=== PATIENT | male | born 1950 | race Caucasian/White ===

== ENCOUNTER 2018-08-18 14:39 | Emergency (ER) | payer MEDICARE ==
[2018-08-18 15:09] VITALS: RESP 20; TEMP 98.4
[2018-08-18] MEDS ORDERED: ceFAZolin 1,000 MG VIAL IM STA (15:34)
[2018-08-18] MEDS ORDERED: DIPH,PERTUS(ACELL)TETVAC-LF 0.5 ML VIAL IM ONE (15:34)
[2018-08-18] MEDS ORDERED: GELATIN SPONGE,ABSORB (LARGE) 1 EACH SPONGE TOPICAL STA (16:04)
[2018-08-18] MEDS ORDERED: LIDOCAINE 1% INJ 10MG/ML (20 ML MDV) SQ STA (16:04)
--- NOTE | 2018-08-18 16:27 | XR ---
EXAMINATION TYPE: XR hand complete RT DATE OF EXAM: 08/18/2018 COMPARISON: NONE HISTORY: Laceration. Cut with a granular TECHNIQUE: 3 views FINDINGS: There is amputation deformity of the soft tissues at the end of the right thumb. There are small densities in the soft tissues consistent with tiny foreign bodies at the end of the thumb. Ther e is probably amputation of part of the tuft of the distal phalanx of the right thumb. 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 There is osteoarthritic changes also in the P IP joints of the fingers. IMPRESSION: Amputation deformity with tiny foreign bodies.
--- NOTE | 2018-08-18 16:38 | ED ---
General Adult HPI - General Chief complaint: Wound/Laceration Stated complaint: Cut tip of thumb off Time Seen by Provider: 08/18/18 15:20 Source: patient, RN notes reviewed Mode of arrival: ambulatory Limitations: no limitations - History of Present Illness Initial comments: Patient is a 68-year-old male presenting to the emergency room today with a chief complaint of an injury to the right thumb that occurred just prior to arrival. He does admit that he was using a grinding wheel when it slipped causing laceration amputation of the distal tip of his right thumb. Patient states unsure of his tetanus status. Patient admits to pain locally. He denies any other complaints or symptoms. Patient denies any recent fever, chills , shortness of breath, chest pain, back pain, abdominal pain, nausea or vomiting , numbness or tingling, headaches or visual changes, or any other complaints. - Related Data Home Medications Medication Instructions Recorded Confirmed Rosuvastatin Calcium [Crestor] 10 mg PO DAILY 08/18/18 08/18/18 Previous Rx's Medication Instructions Recorded Cephalexin [Keflex] 500 mg PO Q12HR 10 Days cap 08/18/18 Ibuprofen [Motrin] 600 mg PO Q6HR PRN #30 day 08/18/18 Allergies Allergy/AdvReac Type Severity Reaction Status Date / Time No Known Allergies Allergy Verified 08/18/18 15:23 Review of Systems ROS Statement: Those systems with pertinent positive or pertinent negative responses have been documented in the HPI. ROS Other: All systems not noted in ROS Statement are negative. Past Medical History Past Medical History: Hyperlipidemia History of Any Multi-Drug Resistant Organisms: None Reported Past Surgical History: No Surgical Hx Reported Past Psychological History: No Psychological Hx Reported Smoking Status: Never smoker Past Alcohol Use History: None Reported Past Drug Use History: None Reported General Exam - General Exam Comments Initial Comments: General: The patient is awake and alert, in no distress, and does not appear acutely ill. Neck: The neck is supple, there is no tenderness or JVD. Musculoskeletal: Patient does have distal tip amputation of the right thumb below the DIP. Sensations are intact. Radial pulses 2+. There is no active bleeding. Patient shows full range of motion. Neurological: A&O x 3. CN II-XII intact, There are no obvious motor or sensory deficits. Coordination appears grossly intact. Speech is normal. Skin: Skin is warm and dry and no rashes or lesions are noted. Psychiatric: Normal mood and affect. Limitations: no limitations Course Vital Signs 08/18/18 15:03 Temperature 98.4 F Pulse Rate 97 Respiratory 20 Rate Blood Pressure 166/76 O2 Sat by Pulse 100 Oximetry Procedures - Procedures Initial comment: Patient's right thumb was anesthetized at the head of the metacarpal with 1% lidocaine. It was irrigated with saline approximately 1 L under pressure. Gelfoam was placed over top. Sterile nonstick dressing placed over top of this. Patient tolerated well. Medical Decision Making - Medical Decision Making X-ray reviewed and does show a distal tip fracture and amputation of the right thumb. Patient's tetanus is been updated. Given dose of Ancef. Patient did have the thumb irrigated and sterile nonstick dressing was placed over top. Patient is advised on up with orthopedics tomorrow. Advised return if symptoms increase or worsen. Will be continued on antibiotics. Disposition Clinical Impression: Fingertip amputation Disposition: HOME SELF-CARE Condition: Good Instructions: Finger Amputation (ED) Additional Instructions: Please leave dressing in place and follow-up with orthopedics tomorrow. Please use antibiotic as prescribed. Please return here to the emergency room symptoms increase or worsen or for any other concerns. Prescriptions: Cephalexin [Keflex] 500 mg PO Q12HR 10 Days cap Ibuprofen [Motrin] 600 mg PO Q6HR PRN #30 day PRN Reason: Pain Is patient prescribed a controlled substance at d/c from ED?: No Referrals: Nonstaff,Physician [REFERRING] - 1-2 days Nacho Billy MD [STAFF PHYSICIAN] - 1-2 days Time of Disposition: 16:39
[2018-08-18 17:02] VITALS: BP 142/70; PULSE 89
== END 2018-08-18 17:02 | disposition home or self-care (01) ==
LOC: EC 14:39
DX: S68.011A Complete traumatic metacarpophalangeal amputation of right thumb, initial encounter (principal); E78.5 Hyperlipidemia, unspecified; Z23 Encounter for immunization; Z79.899 Other long term (current) drug therapy; W27.8XXA Contact with other nonpowered hand tool, initial encounter
CPT/HCPCS: 73130; 90715; 99283; 96372; 90471; J0690; J2001

== ENCOUNTER → 2018-08-20 | Day surgery (SDC) | payer MEDICARE ==
--- NOTE | 2018-08-19 13:03 | HP ---
HISTORY AND PHYSICAL CHIEF COMPLAINT: Right thumb pain. 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 He was using a knife grinder at home when he got his thumb caught in it. He sustained a traumatic partial amputation. He was seen in the emergency room and had his wound irrigated. He was started on oral Keflex. He notes his tetanus is up to date. He denies previous injury. PAST MEDICAL HISTORY: Past medical history is significant for hypercholesterolemia. PAST SURGICAL HISTORY: Past surgical history is negative. CURRENT MEDICATIONS: Crestor and Keflex. ALLERGIES: He denies drug allergies. FAMILY HISTORY: Significant for cancer. SOCIAL HISTORY: Negative for current tobacco or alcohol use. REVIEW OF SYSTEMS: Sixteen-point review of systems otherwise reviewed and is noncontributory. PHYSICAL EXAMINATION: On examination, the patient is approximately 5 feet 8 inches, 190 pounds of mesomorphic habitus. HEENT exam is nonfocal. Neck is supple. He is nontender about the right shoulder, elbow and wrist. On examination of his right hand, he does have a partial amputation of the tip of the right thumb at the mid nail level. The nail plate has been removed. He does have some exposed distal phalanx. He has mild limitation of range of motion; however, he does fire the [employer] and [employer]. Capillary refill is less than 2 seconds in the distal tip. X-rays of the right hand from 08/18/2018 shows amputation of the distal tip of the distal phalanx along with a distal soft tissue defect. IMPRESSION: Right thumb distal tip partial amputation. RECOMMENDATIONS: I talked to the patient regarding his condition and treatment options. At this point, we will plan to proceed with amputation revision with likely shortening of the distal phalanx and coverage of the distal tip. We will likely perform that as an outpatient procedure utilizing local anesthetic and IV sedation. We will have him continue with his current oral Keflex. MMODL / IJN: [id number] /
[2018-08-19 13:21] VITALS: BMI 28.8
[~2018-08-20] MED LIST: BUPIVACAINE (PF) 0.25% 30 ML VIAL MISCELLANE ONE; DEXAMETHASONE SOD PHOSPHATE 10 MG/ML 1 ML VIAL IV ONE; HYDROcodone/APAP 5-325MG 1 EACH TAB PO ONE; KETAMINE 10 MG/ML 20 ML VIAL ONE; LIDOCAINE 1% 20 ML VIAL (10MG/ML) FOR IV START INTRADERMA PRN; LIDOCAINE 1% INJ 10MG/ML (20 ML MDV) ONE; MIDAZOLAM 2 MG/2 ML VIAL ONE; ONDANSETRON 4 MG/2 ML VIAL IVP ONE; PROPOFOL 10 MG/ML 20 ML VIAL IV ONE; ceFAZolin IN SWFI 2 GM/20 ML SYRINGE IVP ONE; fentaNYL (PF) 50 MCG/ML 2 ML AMP IV PRN; fentaNYL (PF) 50 MCG/ML 2 ML AMP ONE
[2018-08-20 12:08] VITALS: RESP 16; TEMP 98.1
[2018-08-20] MEDS: LACTATED RINGERS 1,000 ML IV SCH ×2 (12:37→12:39)
--- NOTE | 2018-08-20 13:35 | P.OP ---
Date of Procedure: 08/20/18 Preoperative Diagnosis: Traumatic partial amputation right thumb distal tip Postoperative Diagnosis: Same Procedure(s) Performed: Irrigation and debridement right thumb distal tip with revision amputation/ closure Right thumb digital block utilizing 10 mL of quarter percent plain Marcaine Anesthesia: MAC, local Surgeon: Nacho Billy Estimated Blood Loss (ml): 4 Pathology: none sent Condition: stable Disposition: PACU Indications for Procedure: The patient's a 68-year-old [id number] male who presents after injuring his right thumb on a sugar grinder. Upon evaluation he was noted have a partial amputation of the right thumb distal tip with soft tissue loss along with exposed bone. A discussion of the risks and benefits of operative intervention was made with the patient. He opted to proceed. Operative risks to include infection, wound healing problems, and possible need for subsequent procedures was discussed. Operative Findings: As below Description of Procedure: The patient was brought to the operating room, and after induction of IV sedation a digital block was placed by myself utilizing 10 mL of quarter percent plain Marcaine. The right upper extremity was then prepped and draped in a normal fashion. A Velasquez drain was used as a tourniquet. The distal tip was then explored. The distal phalanx was exposed with loss of proximal 75% of the sterile matrix. Volar tissue was also deficient. This was copiously irrigated with normal saline. The distal phalanx was exposed and approximately 5 mm was resected utilizing a sagittal saw. The volar soft tissues appeared contaminated with metallic debris and this was debrided sharply with a scalpel. The soft tissue was then closed over this distal tip of the distal phalanx utilizing simple 4-0 Vicryl suture. I felt there was adequate distal soft tissue coverage. The [place] was removed with approximately 20 minutes total tourniquet time. A sterile dressing was applied. Patient was awoken from sedation and transferred to the recovery room in good condition. Blood loss was estimated at 4 mL. No complications were incurred. Sponge and needle counts were correct at the end of the case.
[2018-08-20 14:29] VITALS: BP 147/83; PULSE 69
== END | disposition home or self-care (01) ==
LOC: OR 11:49
PROVIDERS: ATTEND Orthopaedic Surgery
DX: S68.021A Partial traumatic metacarpophalangeal amputation of right thumb, initial encounter (principal); W31.89XA Contact with other specified machinery, initial encounter; Y92.009 Unspecified place in unspecified non-institutional (private) residence as the place of occurrence of the external cause; E78.00 Pure hypercholesterolemia, unspecified; E78.5 Hyperlipidemia, unspecified; Z79.899 Other long term (current) drug therapy; Z79.1 Long term (current) use of non-steroidal anti-inflammatories (NSAID)
CPT/HCPCS: 26236; J2250; J1100; J2405; J2001; J3010; J2704

== ENCOUNTER 2023-09-24 11:55 | Inpatient (IN) | payer MEDICARE ==
[2023-09-24 12:19] LABS: Basophils # (A) 0.1 k/uL (0-0.2); Basophils % (A) 1 %; Eosinophils # (A) 0.4 k/uL (0-0.7); Eosinophils % (A) 3 %; HGB 16.7 gm/dL (13.0-17.5); Lymphocytes # (A) 2.2 k/uL (1.0-4.8); Lymphocytes % (A) 20 %; MCH 28.9 pg (25.0-35.0); MCHC 33.5 g/dL (31.0-37.0); MCV 86.3 fL (80.0-100.0); Mean Platelet Volume 8.1; Monocytes # (A) 0.5 k/uL (0-1.0); Monocytes % (A) 5 %; Neutrophils # (A) 7.5 k/uL (1.3-7.7); Neutrophils % (A) 69 %; Platelet Count 308 k/uL (150-450); RBC 5.79 m/uL (4.30-5.90); RDW 13.1 % (11.5-15.5); WBC 10.8 k/uL (3.8-10.6)
[2023-09-24] MEDS: METOPROLOL TARTRATE 5 MG/5 ML VIAL IVP STA (12:23)
[2023-09-24] MEDS: DILTIAZEM DRIP BOLUS FROM BAG 1 MG SOLN IV ONE ×2 (12:25→16:49)
[2023-09-24] MEDS: DILTIAZEM 125 MG in SODIUM CHLORIDE 0.9% 100 ML IV SCH (12:26)
[2023-09-24 12:27] LABS: ALT 33 U/L (4-49); AST 29 U/L (17-59); African American GFR (CKD) 82 (>60 ml/min/1.73 sqM); Albumin 4.6 g/dL (3.5-5.0); Alkaline Phosphatase 74 U/L (38-126); Anion Gap 10 mmol/L; Blood Urea Nitrogen 19 mg/dL (9-20); Calcium 9.9 mg/dL (8.4-10.2); Carbon Dioxide 23 mmol/L (22-30); Chloride 103 mmol/L (98-107); Glucose 183 mg/dL (74-99); Magnesium 1.8 mg/dL (1.6-2.3); Non-African American GFR(CKD) 71 (>60 ml/min/1.73 sqM); Potassium 4.8 mmol/L (3.5-5.1); Sodium 136 mmol/L (137-145); Total Bilirubin 0.7 mg/dL (0.2-1.3); Total Protein 7.7 g/dL (6.3-8.2)
[2023-09-24 12:28] LABS: INR 0.9 (<1.2); Partial Thromboplastin Time 22.1 sec (22.0-30.0); Prothrombin Time 10.5 sec (10.0-12.5)
--- NOTE | 2023-09-24 13:00 | XR ---
EXAMINATION TYPE: XR chest 2V DATE OF EXAM: 09/24/2023 COMPARISON: NONE TECHNIQUE: PA and lateral views submitted. HISTORY: Chest pain FINDINGS: The lungs are clear and there is no pneumothorax, pleural effusion, or focal pneumonia. Heart size normal and no overt failure. Osseous structures demonstrate hypertrophic and degenerative changes of the spine. Arthropathy of the left AC joint. Diffuse Skeletal hyperostosis in the differential diagnosis. IMPRESSION: 1. No acute process.
--- NOTE | 2023-09-24 13:08 | ED ---
Chest Pain HPI - General Chief Complaint: Chest Pain Stated Complaint: Afib Time Seen by Provider: 09/24/23 12:10 Source: patient, RN notes reviewed, old records reviewed Mode of arrival: EMS Limitations: no limitations - History of Present Illness Initial Comments: This is 71-year-old male to ER for evaluation today. Patient presents for evaluation of chest pain today patient does have some chest pain sweating and shortness of breath that occurred while working out in his garage. Patient was just doing normal activities of daily living will be came inside to try to relax and feel better pain and symptoms did not improve and persisted which presents emergency department still with chest pain and shortness of breath MD Complaint: chest pain -: days(s) Onset: during rest Pain Location: substernal, left chest Pain Radiation: LUE Severity: mild Severity scale (1-10): 3 Quality: heaviness Consistency: constant Improves With: nothing Worsens With: nothing Anginal Symptoms: nausea, sense of impending doom Other Symptoms: palpitations Treatments Prior to Arrival: none - Related Data Previous Rx's Medication Instructions Recorded Apixaban [Eliquis] 5 mg PO BID #60 tab 09/26/23 Aspirin 81 mg PO DAILY #7 tab 09/26/23 Atorvastatin [Lipitor] 80 mg PO HS #90 tab 09/26/23 Clopidogrel [Plavix] 75 mg PO DAILY #90 tab 09/26/23 Losartan [Cozaar] 25 mg PO DAILY #90 tab 09/26/23 Metoprolol Tartrate [Lopressor] 50 mg PO TID #180 tab 09/26/23 Nitroglycerin Sl Tabs [Nitrostat] 0.4 mg SUBLINGUAL Q5M PRN #100 tab 09/26/23 Allergies Allergy/AdvReac Type Severity Reaction Status Date / Time No Known Allergies Allergy Verified 09/24/23 13:38 Review of Systems ROS Statement: Those systems with pertinent positive or pertinent negative responses have been documented in the HPI. ROS Other: All systems not noted in ROS Statement are negative. EKG Findings - EKG Comments: EKG Findings:: EKG is atrial fibrillation with RVR 157 QRS 81 QTc 348 - EKG Results: EKG: interpreted by DAQUAN Past Medical History Past Medical History: Hyperlipidemia Additional Past Medical History / Comment(s): rt thumb injury with external grinder tender 08-18-18 History of Any Multi-Drug Resistant Organisms: None Reported Past Surgical History: No Surgical Hx Reported Additional Past Surgical History / Comment(s): colonoscopy Past Anesthesia/Blood Transfusion Reactions: No Reported Reaction Past Psychological History: No Psychological Hx Reported Past Alcohol Use History: None Reported Past Drug Use History: None Reported - Past Family History Mother Family Medical History: No Reported History Father Family Medical History: Cancer Additional Family Medical History / Comment(s): stomach General Exam Limitations: no limitations General appearance: alert, in no apparent distress, anxious Head exam: Present: atraumatic, normocephalic, normal inspection Eye exam: Present: normal appearance, PERRL, EOMI. Absent: scleral icterus, conjunctival injection, periorbital swelling ENT exam: Present: normal exam, mucous membranes dry, mucous membranes moist Neck exam: Present: normal inspection. Absent: tenderness, meningismus, lymphadenopathy Respiratory exam: Present: normal lung sounds bilaterally. Absent: respiratory distress, wheezes, rales, rhonchi, stridor Cardiovascular Exam: Present: tachycardia, irregular rhythm, normal heart sounds. Absent: systolic murmur, diastolic murmur, rubs, gallop, clicks GI/Abdominal exam: Present: soft, normal bowel sounds. Absent: distended, tenderness, guarding, rebound, rigid Extremities exam: Present: normal inspection, full ROM, normal capillary refill. Absent: tenderness, pedal edema, joint swelling, calf tenderness Back exam: Present: normal inspection Neurological exam: Present: alert, oriented X3, CN II-XII intact Psychiatric exam: Present: normal affect, normal mood Skin exam: Present: warm, dry, intact, normal color. Absent: rash Course Vital Signs 09/24/23 09/24/23 09/24/23 11:58 12:02 12:05 Temperature 98.5 F Pulse Rate 157 H 168 H Pulse Rate [ 130 H Pulse Oximetery ] Respiratory 16 16 Rate Blood Pressure 117/83 Blood Pressure [Right Arm] O2 Sat by Pulse 94 L 100 Oximetry 09/24/23 09/24/23 09/24/23 13:02 14:00 16:00 Temperature 98 F Pulse Rate 98 87 Pulse Rate [ 78 Pulse Oximetery ] Respiratory 18 18 16 Rate Blood Pressure 113/73 111/80 Blood Pressure 112/87 [Right Arm] O2 Sat by Pulse 98 98 97 Oximetry 09/24/23 09/24/2324 16:23 16:50 18:31 Temperature Pulse Rate 98 107 H Pulse Rate [ 86 Pulse Oximetery ] Respiratory 20 18 Rate Blood Pressure 121/82 123/80 Blood Pressure [Right Arm] O2 Sat by Pulse 97 97 Oximetry 09/24/23 18:52 Temperature 98.2 F Pulse Rate Pulse Rate [ 80 Pulse Oximetery ] Respiratory 20 Rate Blood Pressure Blood Pressure 115/68 [Right Arm] O2 Sat by Pulse 95 Oximetry - Reevaluation(s) Reevaluation #1: 09/24/23 14:48 Records reviewed Reevaluation #2: 09/24/23 14:48 Patient symptoms are improved Reevaluation #3: 09/24/23 14:48 Patient is informed of results here in the ER, questions answered still with chest pain Reevaluation #4: 09/24/23 14:48 Was pt. sent in by a medical professional or institution (, PA, [employer], urgent care, hospital, or [place] [facility] facility...) When possible be specific @ -no Did you speak to anyone other than the patient for history (EMS, parent, family, police, friend...)? What history was obtained from this source @ -no Did you review nursing and triage notes (agree or disagree)? Why? @ -agree Are old charts reviewed (outside hosp., previous admission, EMS record, old EKG, old radiological studies, urgent care reports/EKG's, [place] [facility] facility records)? Report findings @ -yes Differential Diagnosis (chest pain, altered mental status, abdominal pain women, abdominal pain men, vaginal bleeding, weakness, fever, dyspnea, syncope, headache, dizziness, GI bleed, back pain, seizure, CVA, palpatations, mental health, musculoskeletal)? @ -prior EKG interpreted by me (3pts min.). @ -yes X-rays interpreted by me (1pt min.). @ -yes negative for acute disease CT interpreted by me (1pt min.). @ -no U/S interpreted by me (1pt. min.). @ -no What testing was considered but not performed or refused? (CT, X-rays, U/S, labs)? Why? @ -none What meds were considered but not given or refused? Why? @ -none Did you discuss the management of the patient with other professionals (professionals i.e. , PA, [employer], lab, RT, psych nurse, social research assistant, food cooking machine operator, teacher, bank compliance officer, dependency case manager)? Give summary @ -no Was smoking cessation discussed for >3mins.? @ -no Was critical care preformed (if so, how long)? @ -yes31 Were there social determinants of health that impacted care today? How? (Homelessness, low income, unemployed, alcoholism, drug addiction, transportation, low edu. Level, literacy, decrease access to med. care, snf, rehab)? @ -none Was there de-escalation of care discussed even if they declined (Discuss DNR or withdrawal of care, Hospice)? DNR status @ -no What co-morbidities impacted this encounter? (DM, HTN, Smoking, COPD, CAD, Cancer, CVA, ARF, Chemo, Hep., AIDS, mental health diagnosis, sleep apnea, morbid obesity)? @ -none Was patient admitted / discharged? Hospital course, mention meds given and route, prescriptions, significant lab abnormalities, going to OR and other pertinent info. @ - 73 male to ER with chest pain and elevated troponin, new onset atrial fibrillation with RVR. Patient placed on anticoagulation will admit for cardiology evaluation Admitted Undiagnosed new problem with uncertain prognosis? @ -no Drug Therapy requiring intensive monitoring for toxicity (Heparin, Nitro, Insulin, Cardizem)? @ -no Were any procedures done? @ -no Diagnosis/symptom? @ -Atrial fibrillation with RVR Acute, or Chronic, or Acute on Chronic? @ -Acute Uncomplicated (without systemic symptoms) or Complicated (systemic symptoms)? @ -Complicated Side effects of treatment? @ -no Exacerbation, Progression, or Severe Exacerbation? @ -exacerbation Poses a threat to life or bodily function? How? (Chest pain, [place], ND, pneumonia, PE, COPD, DKA, ARF, appy, cholecystitis, CVA, Diverticulitis, Homicidal, Suicidal, threat to staff... and all critical care pts) @ -yes significant arrhythmia Reevaluation #5: 09/24/23 14:48 Differential Palpitations Ventricular arrhythmias, atrial arrhythmias, myocardial infarction, anemia, thyrotoxicosis, electrolyte imbalance, hypokalemia, pulmonary embolism, pulmonary disease, drugs, alcohol, anxiety, stress.... This is not meant to be an all-inclusive list. Differential Chest Pain: Stable Angina, Unstable Angina, STEMI, NSTEMI Aortic Dissection, Pneumothorax, Musculoskeletal, Esophageal Spasm GERD, Cholecystitis, Pancreatitis, Zoster, this is not meant to be an all-inclusive list. - Consultations Consultation #1: Dr. Griffin agrees to admit this patient Chest Pain MDM - MDM 73 male to ER with chest pain and elevated troponin, new onset atrial fibrillation with RVR. Patient placed on anticoagulation will admit for cardiology evaluation Critical Care Time Critical Care Time: Yes Total Critical Care Time: 31 Disposition Clinical Impression: Chest pain, Acute non-ST elevation myocardial infarction (NSTEMI), Atrial fibrillation with rapid ventricular response, New onset atrial fibrillation Disposition: ADMITTED IP TO THIS HOSP Is patient prescribed a controlled substance at d/c from ED?: No Time of Disposition: 14:40
[2023-09-24] MEDS ORDERED: NITROGLYCERIN SL TABS 0.4 MG TAB SUBLINGUAL PRN (14:43)
[2023-09-24] MEDS ORDERED: MORPHINE SULFATE 4 MG/ML SYRINGE IV PRN (14:43)
[2023-09-24] MEDS: ASPIRIN 81 MG PO STA (16:10)
[2023-09-24] MEDS: HEPARIN SODIUM 1,000 UN/ML (10ML VL) IV ONE (16:19)
[2023-09-24] MEDS: HEPARIN SOD,PORK IN 0.45% NACL 25,000 UNIT in 0.45% NACL 1 250ML.BAG IV SCH (16:20)
[2023-09-24] MEDS: METOPROLOL TARTRATE 25 MG TAB PO SCH (17:16)
[2023-09-24] MEDS ORDERED: CALCIUM CARBONATE 500 MG CHEWABLE PO PRN (19:25)
[2023-09-24] MEDS ORDERED: ALPRAZolam 0.25 MG TAB PO PRN (19:25)
[2023-09-24] MEDS ORDERED: ACETAMINOPHEN TAB 325 MG TAB PO PRN (19:25)
[2023-09-24] MEDS ORDERED: NALOXONE 0.4 MG/ML 1 ML VIAL IV PRN (19:25)
[2023-09-24] MEDS ORDERED: TEMAZEPAM 15 MG CAP PO PRN (19:25)
[2023-09-24] MEDS ORDERED: LACTULOSE 20 GM/30 ML CUP PO PRN (19:25)
[2023-09-24] MEDS ORDERED: ONDANSETRON 4 MG/2 ML VIAL IVP PRN (19:25)
[2023-09-24] MEDS ORDERED: METOPROLOL TARTRATE 25 MG TAB PO SCH (21:00)
[2023-09-24] MEDS: NITROGLYCERIN OINT 1 INCH/GM PACKET TOPICAL SCH (21:03)
--- NOTE | 2023-09-24 21:44 | P.HPIM ---
History of Present Illness H&P Date: 09/24/23 Chief Complaint: Chest pressure This is a very pleasant 73-year-old patient, with Dr. Ghosh. Patient was in good health. Does not take any medications. Did take statins before but because of muscle aching discontinue the same. Patient is rather active. In fact till few months ago was playing hockey 3 times a week. Yesterday was working in the garage with some machine and suddenly felt chest pressure. Also broke out in a sweat in the forehead. Decided to go inside the house. Started feeling uncomfortable. Decided to come to the hospital. Chest pain last for good 3 to 4 hours. He was given aspirin IV heparin Lopressor Nitropaste in the ER. Cardiology was consulted. Patient's troponins started to go up. Patient is found to be in atrial fibrillation with rapid ventricular rate. On a Cardizem drip also. 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 Does not smoke or drink alcohol. Physical examination: VITAL SIGNS: 98.5, 157, 16, 117 x 83, 94% room air upon presentation GENERAL: BMI 28.1, reclining bed awake not in distress. EYES: Pupils equal. Conjunctiva star l. HEENT: External appearance of nose and ears normal, oral cavity grossly normal. NECK: JVD not raised; masses not palpable. HEART: First and second heart sounds are normal; no edema. LUNGS: Respiratory rate normal; clear to auscultation. ABDOMEN: Soft, nontender, liver spleen not palpable, no masses palpable. PSYCH: Alert and oriented x3; mood and affect star l. MUSCULOSKELETAL:No Clubbing/cyanosis;muscles-grossly intact. OA NEUROLOGICAL: Cranial nerves grossly intact; no facial asymmetry, power and sensation grossly intact. LYMPHATICS: No lymph nodes palpable in the axilla and neck INVESTIGATIONS, reviewed in the clinical context: September 24, 2023: White count 10.8 hemoglobin 16.7 platelets 308 sodium 136 potassium 4.8 creatinine 1.05 Troponin I 0.102, 0.840, 3.0 EKG tracing personally reviewed by me-atrial fibrillation. ST/T wave changes. Chest x-ray film personally reviewed by me-unremarkable Assessment plan: -Acute non-Q wave DE. Third troponin has peaked at 3. Aspirin. Lopressor. IV heparin. Cardiology has been informed. Patient to be made n.p.o. after midnight for probable cardiac catheterization -New onset atrial fibrillation with a rapid ventricular rate IV Cardizem drip. IV heparin. Lopressor -Primary osteoarthritis, minimal symptoms -IV heparin monitoring Follow PTT -IV Cardizem drip monitoring Care was discussed with the patient and at the bedside. Questions answered. Past Medical History Past Medical History: Hyperlipidemia Additional Past Medical History / Comment(s): rt thumb injury with jewel bearing grinder 08-18-18 History of Any Multi-Drug Resistant Organisms: None Reported Past Surgical History: No Surgical Hx Reported Additional Past Surgical History / Comment(s): colonoscopy Past Anesthesia/Blood Transfusion Reactions: No Reported Reaction Smoking Status: Never smoker - Past Family History Mother Family Medical History: No Reported History Father Family Medical History: Cancer Additional Family Medical History / Comment(s): stomach Medications and Allergies Home Medications Medication Instructions Recorded Confirmed Type No Known Home Medications 09/24/23 09/24/23 History Allergies Allergy/AdvReac Type Severity Reaction Status Date / Time No Known Allergies Allergy Verified 09/24/23 13:38 Physical Exam Vitals: Vital Signs Temp Pulse Pulse Resp BP BP Pulse Ox 09/24/23 18:52 98.2 F 80 20 115/68 95 09/24/23 18:31 86 09/24/23 16:50 107 H 18 123/80 97 09/24/23 16:23 98 20 121/82 97 09/24/23 16:00 98 F 78 16 112/87 97 09/24/23 14:00 87 18 111/80 98 09/24/23 13:02 98 18 113/73 98 09/24/23 12:05 130 H 09/24/23 12:02 168 H 16 117/83 100 09/24/23 11:58 98.5 F 157 H 16 94 L Intake and Output 09/24/23 09/24/23 09/24/23 06:59 14:59 22:59 Intake Total 382 Balance 382 Intake: Intake, IV Titration 22 Amount Diltiazem 125 mg In 22 Sodium Chloride 0.9% 100 ml @ 10 MG/HR 10 mls/hr IV .[id number] [facility] Rx#: [id number] Oral 360 Other: Voiding Method Toilet Weight 83.915 kg 83.915 kg Results CBC & Chem 7: 09/24/23 12:04 09/24/23 12:04 Labs: Abnormal Lab Results - Last 24 Hours (Table) 09/24/23 09/24/23 09/24/23 Range/Units 12:04 12:04 12:04 WBC 10.8 H (3.8-10.6) k/uL Sodium 136 L (137-145) mmol/L Glucose 183 H (74-99) mg/dL Troponin I 0.102 H* (0.000-0.034) ng/mL 09/24/23 09/24/23 Range/Units 15:22 19:36 WBC (3.8-10.6) k/uL Sodium (137-145) mmol/L Glucose (74-99) mg/dL Troponin I 0.840 H* 3.000 H* (0.000-0.034) ng/mL Thrombosis Risk Factor Assmnt - Choose All That Apply Any of the Below Risk Factors Present?: No Other Risk Factors: Yes Each Risk Factor Represents 2 Points: Age 61-74 years Other congenital or acquired thrombophilia - If yes, enter type in comment: No Thrombosis Risk Factor Assessment Total Risk Factor Score: 2 Thrombosis Risk Factor Assessment Level: Low Risk
[2023-09-25 05:04] LABS: Mean Platelet Volume 8.7; Platelet Count 267 k/uL (150-450)
[2023-09-25 05:21] LABS: ALT 27 U/L (4-49); AST 46 U/L (17-59); African American GFR (CKD) >90 (>60 ml/min/1.73 sqM); Albumin 3.7 g/dL (3.5-5.0); Alkaline Phosphatase 64 U/L (38-126); Anion Gap 9 mmol/L; Blood Urea Nitrogen 25 mg/dL (9-20); Carbon Dioxide 22 mmol/L (22-30); Chloride 104 mmol/L (98-107); Glucose 167 mg/dL (74-99); Non-African American GFR(CKD) 81 (>60 ml/min/1.73 sqM); Potassium 4.3 mmol/L (3.5-5.1); Sodium 135 mmol/L (137-145); Total Bilirubin 0.6 mg/dL (0.2-1.3); Total Protein 6.3 g/dL (6.3-8.2)
--- NOTE | 2023-09-25 06:55 | CA ---
Transthoracic Echo Report Name: Chase Mcgill Age: 73 Gender: M : 1950 Exam Date: 09/24/2023 15:31 Exam Location: [facility] Ht (in): 68 Wt (lb): 185 Ordering Physician: Dez Huffman DO Attending/Referring Phys: [id number], Armida Vertical Contour Band Saw Operator Francesca Mathis RDCS Procedure CPT: Indications: incTrop Cardiac Hx: Technical Quality: Fair Contrast 1: Total Dose (mL): Contrast 2: Total Dose (mL): MEASUREMENTS (Male / Female) Normal Values 2D ECHO LV Diastolic Diameter PLAX 4.1 cm 4.2 - 5.9 / 3.9 - 5.3 cm LV Systolic Diameter PLAX 3.3 cm IVS Diastolic Thickness 1.3 cm 0.6 - 1.0 / 0.6 - 0.9 cm LVPW Diastolic Thickness 1.2 cm 0.6 - 1.0 / 0.6 - 0.9 cm LV Relative Wall Thickness 0.6 RV Internal Dim ED PLAX 2.5 cm LA Systolic Diameter LX 3.9 cm 3.0 - 4.0 / 2.7 - 3.8 cm LV Diastolic Volume MOD 4C 106.3 cm??? LV Systolic Volume MOD 4C 56.5 cm??? LV Ejection Fraction MOD 4C 46.9 % LV Cardiac Index MOD 4C 2212.9 cm???/min???m??? LV Diastolic Length 4C 7.6 cm LV Systolic Length 4C 6.5 cm LV Diastolic Volume MOD 2C 79.8 cm??? LV Systolic Volume MOD 2C 40.6 cm??? LV Ejection Fraction MOD 2C 49.1 % LV Cardiac Index MOD 2C 1741.8 cm???/min???m??? LV Diastolic Length 2C 7.5 cm LV Systolic Length 2C 6.3 cm LA Volume 54.6 cm??? 18 - 58 / 22 - 52 cm??? LA Volume Index 27.0 cm???/m??? 16 - 28 cm???/m??? M-MODE Aortic Root Diameter MM 4.0 cm MV E Point Septal Separation 0.7 cm AV Cusp Separation MM 2.3 cm DOPPLER AV Peak Velocity 117.0 cm/s AV Peak Gradient 5.5 mmHg AI Peak Velocity 426.5 cm/s AI Peak Gradient 72.8 mmHg AI Pressure Half Time 499.2 ms MV Area PHT 4.6 cm??? MV Deceleration Time 138.5 ms TR Peak Velocity 239.1 cm/s TR Peak Gradient 22.9 mmHg Right Ventricular Systolic Press 27.2 mmHg FINDINGS Left Ventricle Left ventricular ejection fraction is estimated at 50-55 %. Left ventricular cavity size normal. Mildly increased left ventricular wall thickness. Right Ventricle Normal right ventricular size. Right ventricular systolic pressure within normal limits. Right Atrium Normal right atrial size. Left Atrium Normal left atrial size. Mitral Valve Mitral valve thickened. Moderate mitral annular calcification. Mild mitral regurgitation. Aortic Valve Trileaflet aortic valve. [id number] aortic regurgitation.aortic valve sclerosis. Tricuspid Valve Structurally normal tricuspid valve. Mild tricuspid regurgitation. Pulmonic Valve Structurally normal pulmonic valve. Mild pulmonic regurgitation. Pericardium No pericardial effusion. Aorta Mild aortic dilatation at the level of the sinuses of valsalva 40 mm CONCLUSIONS 1. Left ventricular systolic function borderline normal 2. Mild mitral and tricuspid regurgitation 3. [id number] aortic regurgitation Previewed by: Dr. Moises Fallon MD (Electronically Signed) Final Date: 25 September 2023 06:54
[2023-09-25] MEDS ORDERED: ALPRAZolam 0.5 MG TAB PO PRN (08:23)
[2023-09-25] MEDS ORDERED: NITROGLYCERIN SL TABS 0.4 MG TAB SUBLINGUAL PRN (08:23)
[2023-09-25] MEDS ORDERED: ALPRAZolam 0.25 MG TAB PO PRN (08:23)
[2023-09-25] MEDS: ASPIRIN 325 MG TAB PO STA (08:33)
[2023-09-25] MEDS: METOPROLOL TARTRATE 50 MG TAB PO SCH (08:33)
[2023-09-25] MEDS: ATORVASTATIN 80 MG TAB PO STA (08:33)
[2023-09-25] MEDS: ASPIRIN 81 MG PO SCH (08:34)
[2023-09-25] MEDS: SODIUM CHLORIDE 0.9% 1,000 ML in EMPTY BAG 1 BAG IV SCH (08:36)
[2023-09-25] MEDS ORDERED: ASPIRIN 325 MG TAB PO SCH (09:00)
--- NOTE | 2023-09-25 09:27 | P.CRDCN ---
History of Present Illness History of present illness: HISTORY OF PRESENT ILLNESS: This is a 73-year-old male with no significant past medical history. 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 We have been asked to see the patient in consultation for A-fib with RVR and elevated troponin. Patient examined at the bedside. Patient states yesterday he was working out in his garage when he began to have chest discomfort which prompted him to come to the emergency room. Patient was found to be in A-fib with RVR upon admission to the hospital. He was started on IV Cardizem. Patient was also found to have elevated troponins and was placed on IV heparin. He remains on IV heparin and IV Cardizem at the time of examination. Telemetry reveals atrial fibrillation with controlled ventricular rate. The patient reports having a stress test approximately a year ago which was negative to his knowledge. He is a non-smoker. He does report a family history of coronary artery disease. DIAGNOSTICS: - EKG reveals A-fib with RVR - Chest xray for acute process - Laboratory data: WBC 10.8. Hemoglobin 16.7. Platelet count 308. Sodium 135. Potassium 4.3. BUN 25. Creatinine 0.94. Troponin 0.102. 0.840. 3.000. - Current home cardiac medications include none - Echocardiogram completed revealing ejection fraction 50 to 55%, mild mitral regurgitation, mild tricuspid regurgitation, and mild to moderate aortic regurgitation REVIEW OF SYSTEMS: At the time of my exam: CONSTITUTIONAL: Denies fever or chills. HEENT: Denies blurred vision, vision changes, or eye pain. Denies hemoptysis CARDIOVASCULAR: Denies chest pain. Denies orthopnea. Denies PND. Denies palpitations RESPIRATORY: Denies shortness of breath. GASTROINTESTINAL: Denies abdominal pain. Denies nausea or vomiting. HEMATOLOGIC: Denies bleeding disorders. GENITOURINARY: Denies any blood in urine. SKIN: Denies pruitis. Denies rash. PHYSICAL EXAM: VITAL SIGNS: Reviewed. GENERAL: Well-developed in no acute distress. HEENT: Head is normocephalic. Pupils are equal, round. Sclerae anicteric. Mucous membranes of the mouth are moist. Neck supple. No JVD or thyromegaly LUNGS: Respirations even and unlabored. Lungs essentially clear to auscultation bilaterally. HEART: Irregular rate and rhythm. S1 and S2 heard. ABDOMEN: Soft. Nondistended. Nontender. EXTREMITIES: Normal range of motion. No clubbing or cyanosis. Peripheral pulses intact. No lower extremity edema NEUROLOGIC: Awake and alert. Oriented x 3. ASSESSMENT: Chest pain Non-STEMI New onset atrial fibrillation with RVR, currently rate controlled Family history of coronary artery disease PLAN: 2D echo obtained and reviewed Discontinue IV Cardizem Continue IV heparin Decrease aspirin to 81 mg daily Add Lipitor 80 mg at night Increase metoprolol tartrate to 50 mg twice a day Patient to undergo cardiac catheterization today with Dr. Ogden Will transition from IV heparin to oral anticoagulation post procedure Further recommendations pending patient course Nurse practitioner note has been reviewed by physician. Signing provider agrees with the documented findings, assessment, and plan of care documented by ECOLOGIST TECHNICIAN as a scribe. Past Medical History Past Medical History: Hyperlipidemia Additional Past Medical History / Comment(s): rt thumb injury with wheel grinder 08-18-18 History of Any Multi-Drug Resistant Organisms: None Reported Past Surgical History: No Surgical Hx Reported Additional Past Surgical History / Comment(s): colonoscopy Past Anesthesia/Blood Transfusion Reactions: No Reported Reaction Smoking Status: Never smoker - Past Family History Mother Family Medical History: No Reported History Father Family Medical History: Cancer Additional Family Medical History / Comment(s): stomach Medications and Allergies Home Medications Medication Instructions Recorded Confirmed Type No Known Home Medications 09/24/23 09/24/23 History Allergies Allergy/AdvReac Type Severity Reaction Status Date / Time No Known Allergies Allergy Verified 09/24/23 13:38 Physical Exam Vitals: Vital Signs Temp Pulse Pulse Resp BP BP Pulse Ox 09/25/23 04:00 98.1 F 72 18 100/60 95 09/25/23 02:00 79 18 09/25/23 00:00 79 18 96/54 93 L 09/24/23 20:00 87 18 113/72 94 L 09/24/23 18:52 98.2 F 80 20 115/68 95 09/24/23 18:31 86 09/24/23 16:50 107 H 18 123/80 97 09/24/23 16:23 98 20 121/82 97 09/24/23 16:00 98 F 78 16 112/87 97 09/24/23 14:00 87 18 111/80 98 09/24/23 13:02 98 18 113/73 98 09/24/23 12:05 130 H 09/24/23 12:02 168 H 16 117/83 100 09/24/23 11:58 98.5 F 157 H 16 94 L Intake and Output 09/24/23 09/25/23 09/25/23 22:59 06:59 14:59 Intake Total 382 237.667 Balance 382 237.667 Intake: Intake, IV Titration 22 237.667 Amount Diltiazem 125 mg In 22 103 Sodium Chloride 0.9% 100 ml @ 10 MG/HR 10 mls/hr IV .[id number] [facility] Rx#: [id number] Heparin Sod,Pork in 0.45% 134.667 NaCl 25,000 unit In 0.45 % NaCl 1 250ml.bag @ 11. 917 UNITS/KG/HR 10 mls/hr IV .Q24H [facility] Rx#: [id number] Oral 360 Other: Voiding Method Toilet Toilet # Voids 2 Weight 83.915 kg Results 09/25/23 03:56 09/25/23 03:56 Cardiac Enzymes 09/24/23 09/24/23 09/24/23 Range/Units 12:04 12:04 15:22 AST 29 (17-59) U/L Troponin I 0.102 H* 0.840 H* (0.000-0.034) ng/mL 09/24/23 09/25/23 Range/Units 19:36 03:56 AST 46 (17-59) U/L Troponin I 3.000 H* (0.000-0.034) ng/mL Coagulation 09/24/23 09/24/23 09/24/23 Range/Units 12:04 15:22 22:29 PT 10.5 (10.0-12.5) sec APTT 22.1 23.9 56.7 H (22.0-30.0) sec 09/25/23 Range/Units 03:56 PT (10.0-12.5) sec APTT 46.8 H (22.0-30.0) sec CBC 09/24/23 09/25/23 Range/Units 12:04 03:56 WBC 10.8 H (3.8-10.6) k/uL RBC 5.79 (4.30-5.90) m/uL Hgb 16.7 (13.0-17.5) gm/dL Hct 50.0 (39.0-53.0) % Plt Count 308 267 (150-450) k/uL Comprehensive Metabolic Panel 09/24/23 09/25/23 Range/Units 12:04 03:56 Sodium 136 L 135 L (137-145) mmol/L Potassium 4.8 4.3 (3.5-5.1) mmol/L Chloride 103 104 (98-107) mmol/L Carbon Dioxide 23 22 (22-30) mmol/L BUN 19 25 H (9-20) mg/dL Creatinine 1.05 0.94 (0.66-1.25) mg/dL Glucose 183 H 167 H (74-99) mg/dL Calcium 9.9 9.0 (8.4-10.2) mg/dL AST 29 46 (17-59) U/L ALT 33 27 (4-49) U/L Alkaline Phosphatase 74 64 (38-126) U/L Total Protein 7.7 6.3 (6.3-8.2) g/dL Albumin 4.6 3.7 (3.5-5.0) g/dL Current Medications Generic Name Dose Route Start Last Admin Trade Name Freq PRN Reason Stop Dose Admin Acetaminophen 650 mg 09/24/23 19:25 Acetaminophen Tab 325 Mg Tab PO Q6HR PRN Mild Pain or Fever > 100.5 Alprazolam 0.25 mg 09/24/23 19:25 Alprazolam 0.25 Mg Tab PO Q6HR PRN Anxiety Aspirin 81 mg 09/25/23 09:00 Aspirin 81 Mg PO DAILY JESSICA Calcium Carbonate/Glycine 1,000 mg 09/24/23 19:25 Calcium Carbonate 500 Mg Chewable PO Q4HR PRN Dyspepsia Heparin Sodium/Sodium Chloride 250 mls @ 10 mls/hr 09/24/23 14:45 09/25/23 05:48 25,000 unit/ Sodium Chloride IV 11.92 units/kg/hr .Q24H JESSICA 10 mls/hr Titration Protocol 11.917 UNITS/KG/HR Lactulose 20 gm 09/24/23 19:25 Lactulose 20 Gm/30 Ml Cup PO DAILY PRN Constipation Metoprolol Tartrate 50 mg 09/25/23 09:00 Metoprolol Tartrate 25 Mg Tab PO BID [facility] Morphine Sulfate 4 mg 09/24/23 14:43 Morphine Sulfate 4 Mg/Ml Syringe IV Q4HR PRN Chest Pain Naloxone HCl 0.2 mg 09/24/23 19:25 Naloxone 0.4 Mg/Ml 1 Ml Vial IV Q2M PRN Opioid Reversal Nitroglycerin 0.4 mg 09/24/23 14:43 Nitroglycerin Sl Tabs 0.4 Mg Tab SUBLINGUAL Q5M PRN Chest Pain Nitroglycerin 1 inch 09/24/23 18:00 09/25/23 05:48 Nitroglycerin Oint 1 Inch/Gm Packet TOPICAL Not Given Q6HR [facility] Ondansetron HCl 4 mg 09/24/23 19:25 Ondansetron 4 Mg/2 Ml Vial IVP Q8HR PRN Nausea And Vomiting Temazepam 15 mg 09/24/23 19:25 Temazepam 15 Mg Cap PO HS PRN Insomnia Intake and Output 09/24/23 09/25/23 09/25/23 22:59 06:59 14:59 Intake Total 382 237.667 Balance 382 237.667 Intake: Intake, IV Titration 22 237.667 Amount Diltiazem 125 mg In 22 103 Sodium Chloride 0.9% 100 ml @ 10 MG/HR 10 mls/hr IV .[id number] [facility] Rx#: [id number] Heparin Sod,Pork in 0.45% 134.667 NaCl 25,000 unit In 0.45 % NaCl 1 250ml.bag @ 11. 917 UNITS/KG/HR 10 mls/hr IV .Q24H [facility] Rx#: [id number] Oral 360 Other: Voiding Method Toilet Toilet # Voids 2 Weight 83.915 kg 09/25/23 03:56 09/25/23 03:56
[2023-09-25] MEDS ORDERED: HEPARIN SODIUM 1,000 UN/ML (10ML VL) ONE ×2 (12:13→12:15)
[2023-09-25] MEDS ORDERED: VERAPAMIL 2.5 MG/ML 2 ML AMP ONE (12:13)
[2023-09-25] MEDS ORDERED: LIDOCAINE 1% INJ 10MG/ML (20 ML MDV) ONE (12:13)
[2023-09-25] MEDS: SODIUM CHLORIDE 0.9% 1,000 ML IV ONE (12:20)
[2023-09-25] MEDS: MIDAZOLAM 2 MG/2 ML VIAL IVP ONE (12:20)
[2023-09-25] MEDS: LIDOCAINE 1% INJ 10MG/ML (20 ML MDV) SQ ONE (12:22)
[2023-09-25] MEDS: VERAPAMIL SYRINGE (5 MG/10 ML) INTRAARTER ONE (12:22)
[2023-09-25] MEDS: HEPARIN SODIUM 1,000 UN/ML (10ML VL) IV ONE (12:27)
[2023-09-25] MEDS ORDERED: CLOPIDOGREL 75 MG TAB ONE (12:42)
[2023-09-25] MEDS: CLOPIDOGREL 75 MG TAB PO ONE (12:47)
[2023-09-25] MEDS: IOPAMIDOL-370 100ML BTL INJ ONE ×3 (12:47→13:42)
[2023-09-25] MEDS: NITROGLYCERIN 1000MCG/10ML SYRINGE INTRACORON ONE (13:11)
[2023-09-25] MEDS: HYDROmorphone 0.5 MG/0.5 ML SYRINGE IVP ONE (13:40)
[2023-09-25] MEDS ORDERED: RX INFO: IV CONTRAST WAS GIVEN 1 EACH MISC MISCELLANE PRN (13:46)
[2023-09-25] MEDS ORDERED: ZOLPIDEM 5 MG TAB PO PRN (13:46)
[2023-09-25] MEDS ORDERED: ATROPINE SULFATE 0.1 MG/ML 10ML SYRINGE IV PRN (13:46)
[2023-09-25 14:37] VITALS: BMI 28.1
[2023-09-25] MEDS: ATORVASTATIN 80 MG TAB PO SCH (19:53)
--- NOTE | 2023-09-25 20:38 | P.PN ---
Progress Note - Text Progress Note Date: 09/25/23 Chief Complaint: Chest pressure This is a very pleasant 73-year-old patient, with Dr. Ghosh. Patient was in good health. Does not take any medications. Did take statins before but because of muscle aching discontinue the same. Patient is rather active. In fact till few months ago was playing hockey 3 times a week. Yesterday was working in the garage with some machine and suddenly felt chest pressure. Also broke out in a sweat in the forehead. Decided to go inside the house. Started feeling uncomfortable. Decided to come to the hospital. Chest pain last for good 3 to 4 hours. He was given aspirin IV heparin Lopressor Nitropaste in the ER. Cardiology was consulted. Patient's troponins started to go up. Patient is found to be in atrial fibrillation with rapid ventricular rate. On a Cardizem drip also. at the bedside September 25: Saw the patient this morning. IV heparin. Pending cardiac catheterization. No chest pain Active Medications Acetaminophen (Acetaminophen Tab 325 Mg Tab) 650 mg PO Q6HR PRN PRN Reason: Mild Pain or Fever > 100.5 Alprazolam (Alprazolam 0.25 Mg Tab) 0.25 mg PO Q6HR PRN PRN Reason: Mild Anxiety Alprazolam (Alprazolam 0.5 Mg Tab) 0.5 mg PO Q6HR PRN PRN Reason: Moderate Anxiety Aspirin (Aspirin 81 Mg) 81 mg PO DAILY [facility] Last Admin: 09/25/23 08:34 Dose: Not Given Atorvastatin Calcium (Atorvastatin 80 Mg Tab) 80 mg PO HS [facility] Last Admin: 09/25/23 19:53 Dose: 80 mg Atropine Sulfate (Atropine Sulfate 0.1 Mg/Ml 10ml Syringe) 0.5 mg IV ONCE PRN PRN Reason: Symptomatic Bradycardia Calcium Carbonate/Glycine (Calcium Carbonate 500 Mg Chewable) 1,000 mg PO Q4HR PRN PRN Reason: Dyspepsia Clopidogrel Bisulfate (Clopidogrel 75 Mg Tab) 75 mg PO DAILY [facility]; Protocol Heparin Sodium/Sodium Chloride (25,000 unit/ Sodium Chloride) 250 mls @ 10 mls/hr IV .Q24H [facility]; Protocol Last Titration: 09/25/23 10:00 Dose: 0 units/kg/hr, 0 mls/hr Heparin Sodium (Porcine) 10, (000 unit/ Sodium Chloride) 1,001 mls @ 999 mls/hr IRRIGATION ONCE PRN PRN Reason: INTRA-OP Stop: 09/26/23 23:00 Heparin Sodium (Porcine) 2,500 (unit/ Sodium Chloride) 250.5 mls @ 250 mls/hr IRRIGATION ONCE PRN PRN Reason: INTRA-OP Stop: 09/26/23 23:00 Sodium Chloride 1,000 ml/ IV (Solution) 1,000 mls @ 75 mls/hr IV .[id number] [facility] Stop: 09/26/23 02:31 Last Admin: 09/25/23 08:36 Dose: Not Given Lactulose (Lactulose 20 Gm/30 Ml Cup) 20 gm PO DAILY PRN PRN Reason: Constipation Losartan Potassium (Losartan 25 Mg Tab) 25 mg PO DAILY [facility] Metoprolol Tartrate (Metoprolol Tartrate 50 Mg Tab) 50 mg PO BID [facility] Last Admin: 09/25/23 19:53 Dose: 50 mg Miscellaneous Information (Rx Info: Iv Contrast Was Given 1 Each Misc) 1 each MISCELLANE DAILY PRN PRN Reason: Per Protocol Stop: 09/27/23 13:46 Morphine Sulfate (Morphine Sulfate 4 Mg/Ml Syringe) 4 mg IV Q4HR PRN PRN Reason: Chest Pain Naloxone HCl (Naloxone 0.4 Mg/Ml 1 Ml Vial) 0.2 mg IV Q2M PRN PRN Reason: Opioid Reversal Nitroglycerin (Nitroglycerin Oint 1 Inch/Gm Packet) 1 inch TOPICAL Q6HR [facility] Last Admin: 09/25/23 17:38 Dose: Not Given Nitroglycerin (Nitroglycerin Sl Tabs 0.4 Mg Tab) 0.4 mg SUBLINGUAL Q5M PRN PRN Reason: Chest Pain Ondansetron HCl (Ondansetron 4 Mg/2 Ml Vial) 4 mg IVP Q8HR PRN PRN Reason: Nausea And Vomiting Temazepam (Temazepam 15 Mg Cap) 15 mg PO HS PRN PRN Reason: Insomnia Zolpidem Tartrate (Zolpidem 5 Mg Tab) 5 mg PO HS PRN PRN Reason: Insomnia 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 Does not smoke or drink alcohol. Physical examination: VITAL SIGNS: 97.8, 73, 17, 113/72, 95% room air GENERAL: Sitting up in bed, comfortable EYES: Pupils equal. Conjunctiva star l. HEENT: External appearance of nose and ears normal, oral cavity grossly normal. NECK: JVD not raised; masses not palpable. HEART: First and second heart sounds are normal; no edema. LUNGS: Respiratory rate normal; clear to auscultation. ABDOMEN: Soft, nontender, liver spleen not palpable, no masses palpable. PSYCH: Alert and oriented x3; mood and affect star l. MUSCULOSKELETAL:No Clubbing/cyanosis;muscles-grossly intact. OA INVESTIGATIONS, reviewed in the clinical context: September 25: Potassium 4.3 creatinine 0.94. TSH 4.3 September 24, 2023: White count 10.8 hemoglobin 16.7 platelets 308 sodium 136 potassium 4.8 creatinine 1.05 Troponin I 0.102, 0.840, 3.0 EKG tracing personally reviewed by me-atrial fibrillation. ST/T wave changes. Chest x-ray film personally reviewed by me-unremarkable Assessment plan: -Acute non-Q wave MS. Third troponin has peaked at 3. Aspirin. Lopressor. IV heparin. Pending cardiac catheterization this afternoon -New onset atrial fibrillation with a rapid ventricular rate: Now controlled IV Cardizem drip discontinued.. IV heparin. Lopressor 50 mg twice daily -Primary osteoarthritis, minimal symptoms -IV heparin monitoring Follow PTT -IV Cardizem drip discontinued Pending cardiac catheterization. Past Medical History Past Medical History: Hyperlipidemia Additional Past Medical History / Comment(s): rt thumb injury with jig grinder 08-18-18 History of Any Multi-Drug Resistant Organisms: None Reported Past Surgical History: No Surgical Hx Reported Additional Past Surgical History / Comment(s): colonoscopy Past Anesthesia/Blood Transfusion Reactions: No Reported Reaction Smoking Status: Never smoker
--- NOTE | 2023-09-25 23:03 | CC ---
CARDIAC CATHETERIZATION REPORT PROCEDURES: 1. Left heart catheterization and coronary angiography. 2. PTCA and stenting of mid left anterior descending coronary artery with 3 drug- eluting stents. 3. Intravascular ultrasound of the LAD. 4. IFR assessment of a dominant right coronary artery with a moderate lesion. PERFORMED BY: Dr. Keo Ogden. ANESTHESIA: Moderate conscious sedation time was 80 minutes. The patient was administered Versed. Oxygen saturation, hemodynamics and EKG were monitored closely. CLINICAL INFORMATION: The patient is a 73-year-old gentleman with strong family history of CAD who does not take any medications on a regular basis. He came to the hospital with an episode of chest pain while he was doing some hard work in his workshop and was found to have elevated troponin and equivocal EKG changes. He was advised cardiac cath after due discussion. Risks, benefits, options and rationale were explained. PROCEDURE NOTE: Under local anesthesia and strict aseptic precautions, a 6-Taiwanese introducer was placed in the right radial artery. I used a JL3.5 and JR4 catheter. I performed coronary angiography and the same right catheter was used to check LV pressures. I then performed intervention of the mid LAD which had 2 significant lesions after a diagonal branch. Following this, I did intravascular ultrasound of the LAD and then performed an IFR assessment of [place] RCA which had a 55% proximal lesion. Following this, the sheath was taken out and TR band applied as per protocol. Saturation of the fingers of the right hand was 95%. The patient tolerated procedure well without complication. The results were discussed with the patient and and he was sent to the room in a stable condition. He will be on aspirin and Plavix without interruption for 1 year. CARDIAC CATHETERIZATION FINDINGS The left ventricular end-diastolic pressure was about 10 mmHg without any gradient across the aortic valve. CORONARY ANGIOGRAPHY FINDINGS The right coronary artery, very large dominant/superdominant vessel, proximal lesion of about 55%, then very tortuous, almost like a dawson's crook takeoff and then had another tortuosity and distally bifurcates into a large PLV, which has mild diffuse disease and smaller PDA. Proximal RCA therefore has a very acute bend. After the bend, there is a 55% lesion, moderate. Left main coronary artery: Short patent vessel. No significant disease. Bifurcates into LAD and circumflex. Left anterior descending coronary artery: Good caliber vessel, extends along the anterior wall, gives off a diagonal branch which has about 40% narrowing as it comes off. Off the diagonal branch, there is a focal 95% stenosis and then caliber of the vessel appears to be better than there is an eccentric 90% stenosis after which 2 septal branches come off and the vessel runs all the way to apex, but the flow is somewhat sluggish. There are 2 mid lesions one is 90%, one is 80% and the 80% lesion is located between 2 septal branches. The 90% lesion is located right after the diagonal branch. Left posterior circumflex coronary artery, this is a nondominant vessel that is very tortuous, gives off a left atrial circumflex branch. There is a 60% narrowing and then there is an obtuse marginal branch that comes off and then continuation of the circumflex in the AV groove. Circumflex therefore has a 60% to 70% lesion in the midportion after the origin of a left atrial circumflex branch. The obtuse marginal is free of significant disease, but the circumflex in the midportion has a 60% to 70% narrowing. It is a nondominant circumflex. The groove branch has mild diffuse disease. FINAL IMPRESSION: Normal filling pressures. No gradient. Right-dominant system 55%, proximal RCA stenosis. LAD has two 95% and 80% stenosis in the midportion. Circumflex has 60% to 70% mid lesion, non dominant. LV-gram was not performed. RECOMMENDATIONS: I recommended intervention of the LAD which I believe is the most critical lesion. I will also do IFR of the RCA and for circumflex, we will not do any intervention. FINAL IMPRESSION: 1. Normal filling pressures. No gradient super dominant RCA with 55% proximal lesion, 60% to 70% mid circumflex nondominant lesion. LAD has two 90% and 80% lesions in the midportion. LV-gram not performed. RECOMMENDATION: I recommended PCI of LAD, IFR of RCA and proceeded to perform in the same setting. PCI PROCEDURE DETAILS I used a JL3.5 guide catheter to cannulate the left coronary artery and a run-through wire. Wire was kept distally. The mid lesions in the LAD were dilated with a 2.5 caliber NC Trek balloon of 8 mm length. I then noted that there was a small flap in the mid lesion distally between the 2 septals. I deployed a 3.0 caliber 12 mm stent in the midportion with an excellent angiographic result. Proximal to this stent, I deployed another 12 mm stent. I then used another 8 mm 3.0 caliber stent and deployed this right after the diagonal branch. Following this, I performed intravascular ultrasound and noted the distal stent was not very well expanded. I went in with a 3.5 caliber NC trek 15 mm balloon and dilated the entire stented segment with an excellent angiographic result. I then turned my attention to the RCA. ACT was about 262. I then turned my attention to the RCA. A standard right Ceci guide catheter was used and an Omni short wire was used to cross the lesion after appropriate calibrations. IFR assessment was performed. IFR came to be 0.91 and 0.92. This is not critical but moderate lesion. No intervention will be performed. The sheath was taken out and TR band applied as per protocol. The patient received Plavix 600 mg and he will be on aspirin and Plavix combination for 1 year. He also developed a new onset atrial fibrillation and we may place him on Eliquis as well. He was sent to the room in a stable condition. Details were discussed with the patient and his . Excellent angiographic result without complication of the LAD was achieved. RCA appears to be a noncritical lesion. We will pursue medical therapy and also do a stress test down the road. MMODL / IJN: [id number] /
[2023-09-26 05:42] LABS: Basophils # (A) 0.1 k/uL (0-0.2); Basophils % (A) 1 %; Eosinophils # (A) 0.3 k/uL (0-0.7); Eosinophils % (A) 3 %; HCT 40.9 % (39.0-53.0); Lymphocytes # (A) 2.3 k/uL (1.0-4.8); Lymphocytes % (A) 27 %; MCHC 33.2 g/dL (31.0-37.0); MCV 87.3 fL (80.0-100.0); Monocytes # (A) 0.4 k/uL (0-1.0); Monocytes % (A) 5 %; Neutrophils # (A) 5.3 k/uL (1.3-7.7); Neutrophils % (A) 63 %; Platelet Count 231 k/uL (150-450); RBC 4.68 m/uL (4.30-5.90); RDW 13.3 % (11.5-15.5); WBC 8.4 k/uL (3.8-10.6)
[2023-09-26 05:54] LABS: African American GFR (CKD) >90 (>60 ml/min/1.73 sqM); Anion Gap 4 mmol/L; Blood Urea Nitrogen 18 mg/dL (9-20); Calcium 8.6 mg/dL (8.4-10.2); Carbon Dioxide 24 mmol/L (22-30); Chloride 107 mmol/L (98-107); Glucose 142 mg/dL (74-99); Non-African American GFR(CKD) >90 (>60 ml/min/1.73 sqM); Potassium 4.3 mmol/L (3.5-5.1); Sodium 135 mmol/L (137-145)
[2023-09-26 06:35] LABS: HGB 13.6 gm/dL (13.0-17.5)
[2023-09-26] MEDS ORDERED: HEPARIN SODIUM,PORCINE 10,000 UNIT in SODIUM CHLORIDE 0.9% 1,000 ML IRRIGATION PRN (07:00)
[2023-09-26] MEDS ORDERED: HEPARIN SODIUM,PORCINE (1 ML) 2,500 UNIT in SODIUM CHLORIDE 0.9% 250 ML IRRIGATION PRN (07:00)
[2023-09-26] MEDS: CLOPIDOGREL 75 MG TAB PO SCH (08:20)
[2023-09-26 09:03] LABS: Chol/HDL Ratio 6.43 Ratio; LDL Cholesterol,Calculated 144.2 mg/dL (0.0-131.0)
[2023-09-26] MEDS: APIXABAN 2.5 MG TABLET PO SCH (09:18)
--- NOTE | 2023-09-26 12:45 | P.PN ---
Subjective HISTORY OF PRESENT ILLNESS: This is a 73-year-old male with no significant past medical history. 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 We have been asked to see the patient in consultation for A-fib with RVR and elevated troponin. Patient examined at the bedside. Patient states yesterday he was working out in his garage when he began to have chest discomfort which prompted him to come to the emergency room. Patient was found to be in A-fib with RVR upon admission to the hospital. He was started on IV Cardizem. Patient was also found to have elevated troponins and was placed on IV heparin. He remains on IV heparin and IV Cardizem at the time of examination. Telemetry reveals atrial fibrillation with controlled ventricular rate. The patient reports having a stress test approximately a year ago which was negative to his knowledge. He is a non-smoker. He does report a family history of coronary artery disease. DIAGNOSTICS: - EKG reveals A-fib with RVR - Chest xray for acute process - Laboratory data: WBC 10.8. Hemoglobin 16.7. Platelet count 308. Sodium 135. Potassium 4.3. BUN 25. Creatinine 0.94. Troponin 0.102. 0.840. 3.000. - Current home cardiac medications include none - Echocardiogram completed revealing ejection fraction 50 to 55%, mild mitral regurgitation, mild tricuspid regurgitation, and mild to moderate aortic regurgitation 09/26/2023 Patient is status post cardiac catheterization with Dr. Ogden with stenting of mid LAD with 3 stents. iFR assessment of dominant right coronary artery with a moderate lesion. Patient examined this morning at the bedside. Patient denies chest pain or pressure. He denies shortness of breath. Telemetry reveals atrial fibrillation with fairly controlled ventricular rate around 100. He remains on IV heparin. PHYSICAL EXAM: VITAL SIGNS: Reviewed. GENERAL: Well-developed in no acute distress. HEENT: Head is normocephalic. Pupils are equal, round. Sclerae anicteric. Mucous membranes of the mouth are moist. Neck supple. No JVD or thyromegaly LUNGS: Respirations even and unlabored. Lungs essentially clear to auscultation bilaterally. HEART: Irregular rate and rhythm. S1 and S2 heard. ABDOMEN: Soft. Nondistended. Nontender. EXTREMITIES: Normal range of motion. No clubbing or cyanosis. Peripheral pulses intact. No lower extremity edema NEUROLOGIC: Awake and alert. Oriented x 3. ASSESSMENT: Chest pain Non-STEMI, status postcardiac catheterization with stenting of the mid LAD New onset atrial fibrillation with RVR, currently rate controlled Family history of coronary artery disease PLAN: Discontinue IV heparin Continue dual antiplatelet therapy with aspirin and Plavix Per Dr. Ogden, patient will be discharged home on aspirin, Plavix,, and 2.5 mg of Eliquis for 1 week. After 7 days, the patient will discontinue his aspirin. He will continue Plavix 75 mg daily. He will also increase the dose of his Eliquis to 5 mg twice a day Continue additional cardiac medications Anticipate discharge home tomorrow if patient remains stable Nurse practitioner note has been reviewed by physician. Signing provider agrees with the documented findings, assessment, and plan of care documented by CHEF KITCHEN MANAGER as a scribe. Objective - Vital Signs Vital signs: Vital Signs Temp 97.4 F L 09/26/23 11:25 Pulse 103 H 09/26/23 11:25 Resp 20 09/26/23 11:25 BP 130/84 09/26/23 11:25 Pulse Ox 95 09/26/23 11:25 FiO2 Intake & Output 09/25/23 09/26/23 09/26/23 18:59 06:59 18:59 Intake Total 660 1 358 Balance 660 1 358 Weight 83.915 kg 80.3 kg Intake: IV 500 Intake, IV Titration 42 1 Amount Heparin Sod,Pork in 0.45% 42 1 NaCl 25,000 unit In 0.45 % NaCl 1 250ml.bag @ 11. 917 UNITS/KG/HR 10 mls/hr IV .Q24H [facility] Rx#: [id number] Oral 118 358 Other: Voiding Method Toilet Toilet Toilet # Voids 2 4 - Labs CBC & Chem 7: 09/26/23 04:59 09/26/23 04:59 Labs: Abnormal Lab Results - Last 24 Hours (Table) 09/25/23 09/26/23 09/26/23 Range/Units 03:56 04:59 04:59 APTT 40.6 H (22.0-30.0) sec Sodium 135 L (137-145) mmol/L Glucose 142 H (74-99) mg/dL Triglycerides 284.00 H (0.00-149.00) mg/dL Cholesterol 238.00 H (0.00-200.00) mg/dL LDL Cholesterol, Calc 144.2 H (0.0-131.0) mg/dL VLDL Cholesterol, Calc 56.80 H (5.00-40.00) mg/dL HDL Cholesterol 37.00 L (40.00-60.00) mg/dL
[2023-09-26] MEDS: METOPROLOL TARTRATE 50 MG TAB PO SCH (15:08)
--- NOTE | 2023-09-26 15:18 | P.PN ---
Progress Note - Text Progress Note Date: 09/26/23 Chief Complaint: Chest pressure This is a very pleasant 73-year-old patient, with Dr. Ghosh. Patient was in good health. Does not take any medications. Did take statins before but because of muscle aching discontinue the same. Patient is rather active. In fact till few months ago was playing hockey 3 times a week. Yesterday was working in the garage with some machine and suddenly felt chest pressure. Also broke out in a sweat in the forehead. Decided to go inside the house. Started feeling uncomfortable. Decided to come to the hospital. Chest pain last for good 3 to 4 hours. He was given aspirin IV heparin Lopressor Nitropaste in the ER. Cardiology was consulted. Patient's troponins started to go up. Patient is found to be in atrial fibrillation with rapid ventricular rate. On a Cardizem drip also. at the bedside September 25: Saw the patient this morning. IV heparin. Pending cardiac catheterization. No chest pain September 26: Patient has a cardiac cath by Dr. CESAR Ogden yesterday with stent to the mid LAD/3 stents. Also IFR assessment of the RCA. No chest pain or shortness of breath. Remains in atrial fibrillation with heart rate around 100. On IV heparin. Active Medications Acetaminophen (Acetaminophen Tab 325 Mg Tab) 650 mg PO Q6HR PRN PRN Reason: Mild Pain or Fever > 100.5 Alprazolam (Alprazolam 0.25 Mg Tab) 0.25 mg PO Q6HR PRN PRN Reason: Mild Anxiety Alprazolam (Alprazolam 0.5 Mg Tab) 0.5 mg PO Q6HR PRN PRN Reason: Moderate Anxiety Apixaban (Apixaban 2.5 Mg Tablet) 2.5 mg PO BID [facility]; Protocol Stop: 10/03/23 09:16 Last Admin: 09/26/23 09:18 Dose: 2.5 mg Aspirin (Aspirin 81 Mg) 81 mg PO DAILY [facility] Last Admin: 09/26/23 08:20 Dose: 81 mg Atorvastatin Calcium (Atorvastatin 80 Mg Tab) 80 mg PO HS [facility] Last Admin: 09/25/23 19:53 Dose: 80 mg Atropine Sulfate (Atropine Sulfate 0.1 Mg/Ml 10ml Syringe) 0.5 mg IV ONCE PRN PRN Reason: Symptomatic Bradycardia Calcium Carbonate/Glycine (Calcium Carbonate 500 Mg Chewable) 1,000 mg PO Q4HR PRN PRN Reason: Dyspepsia Clopidogrel Bisulfate (Clopidogrel 75 Mg Tab) 75 mg PO DAILY [facility]; Protocol Last Admin: 09/26/23 08:20 Dose: 75 mg Heparin Sodium (Porcine) 10, (000 unit/ Sodium Chloride) 1,001 mls @ 999 mls/hr IRRIGATION ONCE PRN PRN Reason: INTRA-OP Stop: 09/26/23 23:00 Heparin Sodium (Porcine) 2,500 (unit/ Sodium Chloride) 250.5 mls @ 250 mls/hr IRRIGATION ONCE PRN PRN Reason: INTRA-OP Stop: 09/26/23 23:00 Lactulose (Lactulose 20 Gm/30 Ml Cup) 20 gm PO DAILY PRN PRN Reason: Constipation Losartan Potassium (Losartan 25 Mg Tab) 25 mg PO DAILY [facility] Metoprolol Tartrate (Metoprolol Tartrate 50 Mg Tab) 50 mg PO TID [facility] Last Admin: 09/26/23 15:08 Dose: 50 mg Miscellaneous Information (Rx Info: Iv Contrast Was Given 1 Each Misc) 1 each MISCELLANE DAILY PRN PRN Reason: Per Protocol Stop: 09/27/23 13:46 Morphine Sulfate (Morphine Sulfate 4 Mg/Ml Syringe) 4 mg IV Q4HR PRN PRN Reason: Chest Pain Naloxone HCl (Naloxone 0.4 Mg/Ml 1 Ml Vial) 0.2 mg IV Q2M PRN PRN Reason: Opioid Reversal Nitroglycerin (Nitroglycerin Sl Tabs 0.4 Mg Tab) 0.4 mg SUBLINGUAL Q5M PRN PRN Reason: Chest Pain Ondansetron HCl (Ondansetron 4 Mg/2 Ml Vial) 4 mg IVP Q8HR PRN PRN Reason: Nausea And Vomiting Temazepam (Temazepam 15 Mg Cap) 15 mg PO HS PRN PRN Reason: Insomnia Zolpidem Tartrate (Zolpidem 5 Mg Tab) 5 mg PO HS PRN PRN Reason: Insomnia 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 Does not smoke or drink alcohol. Physical examination: VITAL SIGNS: 97.4, 103, 20, 130/84, 95% room air GENERAL: Reclining in bed comfortable EYES: Pupils equal. Conjunctiva star l. HEENT: External appearance of nose and ears normal, oral cavity grossly normal. NECK: JVD not raised; masses not palpable. HEART: Heart sounds regular no edema. LUNGS: Respiratory rate normal; clear to auscultation. ABDOMEN: Soft, nontender, liver spleen not palpable, no masses palpable. PSYCH: Alert and oriented x3; mood and affect star l. MUSCULOSKELETAL:No Clubbing/cyanosis;muscles-grossly intact. OA INVESTIGATIONS, reviewed in the clinical context: September 26: White count 8.4 potassium 4.3 creatinine 0.78. LDL 144 September 25: Potassium 4.3 creatinine 0.94. TSH 4.3 September 24, 2023: White count 10.8 hemoglobin 16.7 platelets 308 sodium 136 potassium 4.8 creatinine 1.05 Troponin I 0.102, 0.840, 3.0 EKG tracing personally reviewed by me-atrial fibrillation. ST/T wave changes. Chest x-ray film personally reviewed by me-unremarkable Assessment plan: -Acute non-Q wave DC. Third troponin has peaked at 3. Aspirin. Lopressor. IV heparin. Cardiac catheterization with stent to LAD. -CAD with stent to LAD -New onset atrial fibrillation with a rapid ventricular rate: Now controlled IV Cardizem drip discontinued.. IV heparin. Increase Lopressor 50 mg 3 times daily -Primary osteoarthritis, minimal symptoms -IV heparin monitoring Follow PTT Discussed with patient and at the bedside. Increase activity. 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
[2023-09-26] MEDS: LOSARTAN 25 MG TAB PO SCH (19:58)
[2023-09-27 08:58] LABS: Mean Platelet Volume 8.4; Platelet Count 236 k/uL (150-450)
[2023-09-27 09:21] VITALS: TEMP 97.6
[2023-09-27 11:37] VITALS: BP 140/72; PULSE 92; RESP 16
--- NOTE | 2023-09-28 17:42 | P.DS ---
Providers Date of admission: 09/24/23 14:44 Expected date of discharge: 09/27/23 Attending physician: Rayray Griffin Consults: 09/24/23 14:43 Consult Physician Urgent Consulting Provider: Moises Fallon Consult Reason/Comments: afibRVR,elevTrop Do you want consulting provider notified?: Yes 09/25/23 13:46 Consult Physician Routine Consulting Provider: [facility] Consult Reason/Comments: Post Interventional Patient Do you want consulting provider notified?: Already Contacted Primary care physician: Dez Ghosh [facility] Course: Chief Complaint: Chest pressure This is a very pleasant 73-year-old patient, with Dr. Ghosh. Patient was in good health. Does not take any medications. Did take statins before but because of muscle aching discontinue the same. Patient is rather active. In fact till few months ago was playing hockey 3 times a week. Yesterday was working in the garage with some machine and suddenly felt chest pressure. Also broke out in a sweat in the forehead. Decided to go inside the house. Started feeling uncomfortable. Decided to come to the hospital. Chest pain last for good 3 to 4 hours. He was given aspirin IV heparin Lopressor Nitropaste in the ER. Cardiology was consulted. Patient's troponins started to go up. Patient is found to be in atrial fibrillation with rapid ventricular r ate. On a Cardizem drip also. at the bedside September 25: Saw the patient this morning. IV heparin. Pending cardiac catheterization. No chest pain September 26: Patient has a cardiac cath by Dr. CESAR Ogden yesterday with stent to the mid LAD/3 stents. Also IFR assessment of the RCA. No chest pain or shortness of breath. Remains in atrial fibrillation with heart rate around 100. On IV heparin. September 27: Patient doing well. No chest pain or short of breath. Did ambulate. Seen by cardiology. Cleared for discharge. Follow-up with cardiology. 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 Does not smoke or drink alcohol. Physical examination: VITAL SIGNS: 97.6, 92, 16, 140/72, 96% room air GENERAL: Sitting up, comfortable EYES: Pupils equal. Conjunctiva star l. HEENT: External appearance of nose and ears normal, oral cavity grossly normal. NECK: JVD not raised; masses not palpable. HEART: Heart sounds regular no edema. LUNGS: Respiratory rate normal; clear to auscultation. ABDOMEN: Soft, nontender, liver spleen not palpable, no masses palpable. PSYCH: Alert and oriented x3; mood and affect star l. MUSCULOSKELETAL:No Clubbing/cyanosis;muscles-grossly intact. OA INVESTIGATIONS, reviewed in the clinical context: September 26: White count 8.4 potassium 4.3 creatinine 0.78. LDL 144 September 25: Potassium 4.3 creatinine 0.94. TSH 4.3 September 24, 2023: White count 10.8 hemoglobin 16.7 platelets 308 sodium 136 potassium 4.8 creatinine 1.05 Troponin I 0.102, 0.840, 3.0 EKG tracing personally reviewed by me-atrial fibrillation. ST/T wave changes. Chest x-ray film personally reviewed by me-unremarkable Assessment plan: -Acute non-Q wave HI. Third troponin has peaked at 3. Aspirin. Lopressor. IV heparin. Cardiac catheterization with stent to LAD. -CAD with stent to LAD -New onset atrial fibrillation with a rapid ventricular rate: Now controlled IV Cardizem drip discontinued.. IV heparin. 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 History of Any Multi-Drug Resistant Organisms: None Reported Past Surgical History: No Surgical Hx Reported Additional Past Surgical History / Comment(s): colonoscopy Past Anesthesia/Blood Transfusion Reactions: No Reported Reaction Smoking Status: Never smoker Plan - Discharge Summary Discharge Rx Participant: No New Discharge Prescriptions: New Aspirin 81 mg PO DAILY #7 tab Atorvastatin [Lipitor] 80 mg PO HS #90 tab Losartan [Cozaar] 25 mg PO DAILY #90 tab Apixaban [Eliquis] 5 mg PO BID #60 tab Metoprolol Tartrate [Lopressor] 50 mg PO TID #180 tab Nitroglycerin Sl Tabs [Nitrostat] 0.4 mg SUBLINGUAL Q5M PRN #100 tab PRN Reason: Chest Pain Clopidogrel [Plavix] 75 mg PO DAILY #90 tab Discharge Medication List Apixaban [Eliquis] 5 mg PO BID #60 tab 09/26/23 [Rx] Aspirin 81 mg PO DAILY #7 tab 09/26/23 [Rx] Atorvastatin [Lipitor] 80 mg PO HS #90 tab 09/26/23 [Rx] Clopidogrel [Plavix] 75 mg PO DAILY #90 tab 09/26/23 [Rx] Losartan [Cozaar] 25 mg PO DAILY #90 tab 09/26/23 [Rx] Metoprolol Tartrate [Lopressor] 50 mg PO TID #180 tab 09/26/23 [Rx] Nitroglycerin Sl Tabs [Nitrostat] 0.4 mg SUBLINGUAL Q5M PRN #100 tab 09/26/23 [Rx] Follow up Appointment(s)/Referral(s): Jean-Paul Ogden MD [STAFF PHYSICIAN] - 1 Week (please make appointment on the 16th in the morning, Call and make meredith) Dez Ghosh DO [Primary Care Provider] - 1-2 days (Call and make meredith) Patient Instructions/Handouts: Heart Attack (DC), A-fib (Atrial Fibrillation) (DC) Activity/Diet/Wound Care/Special Instructions: FOR THE FIRST WEEK, TAKE 2.5MG OF ELIQUIS TWICE A DAY, PLAVIX 75MG DAILY, AND ASPIRIN 81MG DAILY AFTER ONE WEEK, DISCONTINUE ASPIRIN, CONTINUE PLAVIX 75MG DAILY, AND INCREASE ELIQUIS TO 5MG TWICE A DAY Discharge Disposition: HOME SELF-CARE
== END 2023-09-27 12:57 | disposition home or self-care (01) | DRG 322 ==
LOC: EC 11:55 → 3SCARD 14:44
PROVIDERS: ADMIT Hospitalist; ATTEND Hospitalist
PROC: 027036Z Dilation of Coronary Artery, One Artery with Three Drug-eluting Intraluminal Devices, Percutaneous Approach (ICD-10-PCS; principal; 2023-09-26)
PROC: B2111ZZ Fluoroscopy of Multiple Coronary Arteries using Low Osmolar Contrast (ICD-10-PCS; 2023-09-26)
PROC: 4A023N8 Measurement of Cardiac Sampling and Pressure, Bilateral, Percutaneous Approach (ICD-10-PCS; 2023-09-26)
PROC: B2161ZZ Fluoroscopy of Right and Left Heart using Low Osmolar Contrast (ICD-10-PCS; 2023-09-26)
PROC: B240ZZ3 Ultrasonography of Single Coronary Artery, Intravascular (ICD-10-PCS; 2023-09-26)
DX: I21.4 Non-ST elevation (NSTEMI) myocardial infarction (principal); Z83.49 Family history of other endocrine, nutritional and metabolic diseases; I48.91 Unspecified atrial fibrillation; I08.3 Combined rheumatic disorders of mitral, aortic and tricuspid valves; E78.5 Hyperlipidemia, unspecified; I25.10 Atherosclerotic heart disease of native coronary artery without angina pectoris; F41.9 Anxiety disorder, unspecified; G47.00 Insomnia, unspecified; K59.00 Constipation, unspecified; Y93.22 Activity, ice hockey; Z79.01 Long term (current) use of anticoagulants; Z79.02 Long term (current) use of antithrombotics/antiplatelets; Z79.82 Long term (current) use of aspirin; Z79.899 Other long term (current) drug therapy; Z82.49 Family history of ischemic heart disease and other diseases of the circulatory system
CPT/HCPCS: 36415; 71046; 80048; 80053; 80061; 83735; 84443; 84484; 85025; 85049; 85610; 85730; 92978; 93005; 93306; 93458; 93799; 96365; 96366; 96368; 96375; 99291